=== PATIENT | male | born 1985 | race Caucasian/White ===

== ENCOUNTER 2021-05-03 11:15 | Emergency (ER) | payer OTHER, SELFPAY ==
[2021-05-03 11:47] VITALS: BP 150/110; BP 163/106; PULSE 57; PULSE 67; RESP 18; TEMP 35.3; O2SAT 100; O2SAT 99; BMI 32.1
--- NOTE | 2021-05-03 13:20 | ED.GENADULT ---
HPI - General Adult General Chief complaint: General Medical Stated complaint: WITHDRAWL Time Seen by Provider: 05/03/21 13:39 Source: patient Mode of arrival: ambulatory Limitations: no limitations History of Present Illness HPI narrative: Patient presents to ED for Suboxone dose. Patient presents to ED for headache, nausea, and body aches. Patient states having withdrawal symptoms. Patient states last took his Suboxone on the 01 of May given by [facility]. Patient states he was recently released from senior care and has a follow-up with [facility] tomorrow. Related Data Allergies Allergy/AdvReac Type Severity Reaction Status Date / Time No Known Allergies Allergy Verified 05/03/21 13:27 Review of Systems Review of Systems: Yes all other systems are reviewed and are negative Constitutional: Constitutional: Reports as per HPI, Reports no additional constitutional complaints, Reports body ache(s) and Reports headache(s) Eyes: Eyes: Reports as per HPI and Reports no additional eye complaints ENT: Reports system reviewed and no additional complaints, except as documented, Reports as per HPI and Reports headache(s) Cardiovascular: Cardiovascular: Reports as per HPI and Reports no additional cardiovascular complaints Respiratory: Respiratory: Reports as per HPI and Reports no additional respiratory complaints Gastrointestinal: Gastrointestinal: Reports as per HPI, Reports no additional gastrointestinal complaints and Reports nausea Genitourinary: Genitourinary: Reports no additional male genitourinary complaints and Reports as per HPI Musculoskeletal: Musculoskeletal: Reports no additional musculoskeletal complaints and Reports as per HPI Neurologic: Reports system reviewed and no additional complaints, except as documented, Reports as per HPI and Reports headache(s) Psychiatric: Psychiatric: Reports no additional psychiatric complaints and Reports as per HPI [facility] Social History Social History Advance Directives: No Advance Directives Information Provided: Yes Physical Exam Vital Signs: Vital Signs: Last Vital Signs Temp 95.5 F L 05/03/21 11:47 Pulse 67 05/03/21 11:47 Resp 18 05/03/21 11:47 BP 163/106 H 05/03/21 11:47 Pulse Ox 100 05/03/21 11:47 Body Mass Index 32.1 Const: General: cooperative, healthy appearing, comfortable, no acute distress, well developed, alert and awake Orientation/consciousness: patient oriented x3 HENMT: Head: Yes normal to inspection, Yes No palpable skull fracture present, Yes normocephalic, Yes atraumatic and Yes abrasion Eyes: General: appearance normal, both eyes and all related structures Neck: Neck: Yes normal visual inspection, Yes full ROM, Yes no lymphadenopathy, Yes no meningeal signs, Yes trachea midline, Yes supple and No tender Chest: Chest palpation & inspection: normal inspection of the chest and normal palpation of entire chest wall Resp: Effort & Inspection: normal respiratory effort and able to speak in complete sentences Cardio: Jugular venous distension: no JVD Heart sounds: S1 normal heart sound present and S2 normal heart sound present GI: Inspection: Yes normal to inspection and No abdominal wall ecchymosis Palpation (GI): Soft to palpation, not firm, nontender, no guarding and not rigid : General: No CVA tenderness and Yes no CVA tenderness Back/Spine/Pelvis: Back: no CVA tenderness, No CVA tenderness and No back tenderness Skin: General skin exam: no rashes or lesions noted and elasticity normal Neuro: General: patient oriented x3, gait normal, no meningeal signs and CN's II-XI intact bilaterally Cranial nerves: Yes CN's II-XII intact bilaterally Extrem: General: Yes normal to inspection and Yes full ROM Psych: Appearance: grossly normal, well kempt and not disheveled Course Course Course Narrative: Patient presents to me with paper that states he received last dose of Suboxone 8 mg on 05/01/2021 from [facility]. Patient will be given another dose of Suboxone 8 mg here with Motrin and Zofran. Gurpreet girls swimming coach evaluated patient. Reevaluation(s) Reevaluation #1: Patient given Suboxone 8 mg and Motrin and Zofran. Patient will be discharged Time: 13:59 Medical Decision Making [facility] Narrative Medical decision making narrative: Suboxone Discharge Plan Discharge Clinical Impression: Opiate withdrawal Patient Disposition: Home, Self-Care Instructions: Buprenorphine/Naloxone (Into the mouth), Opioid Withdrawal (ED) Additional Instructions: Le dieron Suboxone en la sandie de emergencias. Jaylan un seguimiento con avilez cl?ulises de espectro ma?fabiano para recibir avilez receta de Suboxone. Regrese al servicio de urgencias si tiene dolor abdominal, n?useas, v?mitos, calambres, escalofr?os, fiebre, dolor de aminah intenso, dolor en el pecho, dificultad para respirar o cualquier otro s?ntoma que le preocupe. Interventions: ED Discharge Assessment Last Done: 05/03/21 14:07 Print Language: Japanese
--- NOTE | 2021-05-03 13:26 | MHC.RECOVSUP ---
Recovery Support note: Patient is a 36 year old British speaking male who presented to [facility] ED via EMS in withdrawal after going two days without Suboxone. Patient reports he was released from long-term two days ago and he was supposed to get Suboxone from [facility] however this did not happen. Patient wants to continue with the Suboxone and is agreeable to getting a dose while in the ED. Encouraged patient to contact [facility] tomorrow to discuss their plan for him. Provided patient with information on Suboxone clinics close to the program he currently resides at. Patient reports no questions at this time. This telegraphic typewriter operator spoke with staff at the program where patient is located. She reports that they are unable to provide transportation and patient will have to walk or use bus passes to get to his appointments. This telegraphic typewriter operator provided patient with information on a clinic 3 miles from his program at [address] [place] [address]. This telegraphic typewriter operator will assist in transporting patient back to program via Lyft or Taxi. Discussed case with patient's RN and ED provider.
--- NOTE | 2021-05-03 13:37 | PC.NURSE ---
pt using bathroom multiple times, flushing multiple times. security at bedside to check for contraband
[2021-05-03] MEDS: Buprenorphine/Naloxone 8/2 mg FILM 1 FILM SUBLINGUAL (14:05)
[2021-05-03] MEDS: Ibuprofen 800 MG TABLET PO (14:05)
== END 2021-05-03 14:44 | disposition home or self-care (01) ==
PROVIDERS: Emergency Provider Emergency Medicine
DX: F11.23 Opioid dependence with withdrawal (principal); R51.9 Headache, unspecified
CPT/HCPCS: 99284